=== PATIENT | female | born 1960 | race Caucasian/White ===

== ENCOUNTER → 2016-12-20 | Outpatient (CLI) | payer OTHER ==
[~2016-12-20] MED LIST: ALLEGRA D 12 HO1 TER PO; AMOXICILLIN 50500 MG PO; BACLOFEN20 MG PO; CELEBREX 200MG200 MG PO; CENESTIN1.25 MG PO; CYMBALTA60 MG PO; FLEXERIL10 MG PO; FLONASE 50 MCG16 GM; HYDROCODONE-APA1 TA2 PO; HYDROCODONE1 TABLET PO; METAXALONE800 MG PO; MINOCYCLINE100 MG PO; MULTIVITAMIN1 TAB PO; NEURONTIN 300M300 MG PO; OMEPRAZOLE D/R20 MG PO; SINGULAIR10 MG PO; SOMA250 MG PO; TRAMADOL 50MG T50 MG PO; TRAZODONE 50MG50 MG PO; ZOMIG2.5 MG PO; [UNRECOGNIZED DRUG - OTHER]
--- NOTE | 2016-12-21 17:14 | RADIOLOGY REPORT PS360 ---
DIG MAMM-SCREEN ED W/CAD CAD Screening COMPARISON: Digital mammograms 09/07/2015 and 04/24/2013 INDICATION: There is a history of breast cancer patient's mother diagnosed at age 73 and the patient's grandmother as well. TECHNIQUE: Standard CC and MLO images were obtained. R2 CAD reviewed. FINDINGS: Mild to moderate scattered fibroglandular densities are seen throughout both breast. There are few scattered benign-appearing calcination is in each breast some of which appear to be cutaneous in location. There is no suspicious lesion and there are no suspicious microcalcifications. There are fatty replaced nodes in both axilla. IMPRESSION: Stable exam no suspicious lesion seen recommend yearly follow-up BI-RADS CATEGORY: 2_Benign RECOMMENDED FOLLOWUP: 12M 12 MONTH FOLLOW-UP (A letter has been sent to the patient regarding results of the study.)
== END ==
LOC: RAD 11:00
DX: Z12.31 Encounter for screening mammogram for malignant neoplasm of breast (principal)
CPT/HCPCS: G0202